=== PATIENT | female | born 1995 | race Caucasian/White ===

== ENCOUNTER → 2018-12-22 | Outpatient (CLI) | payer OTHER ==
[~2018-12-22] MED LIST: ALBU90OI; ALBU90OI INH; AZIT250 PO; CEPH500 PO; CIPRO500 MG PO; HYDACE5 PO; HYDSUL200; LOPE2C PO; METTREX2.5; MONT10T PO; NAPR375; PRED20 PO; PRENATAL; RXHYDACE PO; Zithromax250 MG PO; Zofran8 MG PO
== END | disposition home or self-care (01) ==
LOC: LAB SHORT 13:06 → LAB EV 13:06
DX: L02.91 Cutaneous abscess, unspecified (principal)
CPT/HCPCS: 87070; 87075; 87205

== ENCOUNTER 2020-09-27 02:08 | Emergency (ER) | payer OTHER ==
[~2020-09-27] VITALS: Ht 167.6 cm; Wt 106.1 kg
[2020-09-27 03:49] LABS: Source, Urine Clean Catch
[2020-09-27 03:52] LABS: Bilirubin, Urine Neg (Neg); Blood, Urine 2+ (Neg); Glucose Qualitative, Urine Neg (Neg); Ketones, Urine 1+ (Neg); Leukocyte Esterase, Urine 1+ (Neg); Nitrite, Urine Neg (Neg); Protein, Urine Neg (Neg); Urobilinogen, Urine 1+ (Normal)
[2020-09-27 03:53] LABS: Appearance, Urine Clear (Clear); Color, Urine Yellow (P-Yellow)
[2020-09-27 04:02] LABS: Bacteria Few /hpf; Squamous Epithelial Cells Many /hpf (Few); White Blood Cells, Urine 0-2 /hpf (0-5)
== END 2020-09-27 05:06 | disposition home or self-care (01) ==
LOC: ER 02:08
PROVIDERS: Emergency Medicine
DX: S30.0XXA Contusion of lower back and pelvis, initial encounter (principal); M25.551 Pain in right hip; M25.512 Pain in left shoulder; R10.32 Left lower quadrant pain; R31.9 Hematuria, unspecified; V50.5XXA Driver of pick-up truck or van injured in collision with pedestrian or animal in traffic accident, initial encounter; Y92.410 Unspecified street and highway as the place of occurrence of the external cause
CPT/HCPCS: 71046; 74177; 81001; 81025; 99284-25; A9270; Q9967

== ENCOUNTER 2021-05-26 06:03 | Day surgery (SDC) | payer OTHER ==
[~2021-05-26] VITALS: Ht 167.6 cm; Wt 109.1 kg
--- NOTE | 2021-05-26 06:47 | NUR ---
Ambulatory in Day Surgery History, Chart, Medications and Allergies reviewed before start of procedure.Patient confirms NPO status and agrees with scheduled surgery.
--- NOTE | 2021-05-26 09:45 | NUR ---
PT ABLE TO AMBULATE TO BATHROOM WITH ONLY STANDBY ASSIST. ABLE TO DRESS INDEPENDENTLY, ABLE TO VOID W/O DIFFICULTY. IV D/C'D, WNL, DRESSING APPLIED. PT STATES MINIMAL BLEEDING ON PERIPAD. D/C INSTRUCTIONS GIVEN, DENIES QUESTIONS
== END 2021-05-26 22:36 | disposition home or self-care (01) ==
LOC: ORSCMMR 06:03 → ORD 07:30 → ORSCMMR 22:36
PROVIDERS: Obstetrics & Gynecology
PROC: 10D17ZZ Extraction of Products of Conception, Retained, Via Natural or Artificial Opening (ICD-10-PCS; principal; 2021-05-26 07:30)
DX: O02.1 Missed abortion (principal); E66.01 Morbid (severe) obesity due to excess calories; Z68.38 Body mass index [BMI] 38.0-38.9, adult; Z79.899 Other long term (current) drug therapy
CPT/HCPCS: 88305; A9270; J1100; J1885; J2210; J2250; J2370; J2405; J2704; J3010; J7120

== ENCOUNTER 2021-09-07 18:26 | Observation (INO) | payer OTHER ==
[~2021-09-07] VITALS: Ht 167.6 cm; Wt 104.7 kg
[2021-09-07 20:32] LABS: BASOPHILS PERCENT AUTO 1 % (0-2); EOSINOPHILS ABSOLUTE AUTO 0.66 K/mm3 (0.00-0.68); EOSINOPHILS PERCENT AUTO 5 % (0-6); Hematocrit 43.1 % (33.0-51.0); Hemoglobin 14.6 g/dL (11.5-16.0); IMMATURE GRAN ABSOLUTE AUTO 0.05 K/mm3 (0.00-0.10); IMMATURE GRAN PERCENT AUTO 0 % (0-1); LYMPHOCYTES ABSOLUTE AUTO 5.19 K/mm3 (0.84-5.20); LYMPHOCYTES PERCENT AUTO 36 % (21-46); MONOCYTES ABSOLUTE AUTO 0.75 K/mm3 (0.16-1.47); MONOCYTES PERCENT AUTO 5 % (4-13); Mean Corpuscular HGB 30.5 pg (26.0-34.0); Mean Corpuscular HGB Conc 33.9 g/dL (31.5-36.5); Mean Corpuscular Volume 90 fL (80-100); Mean Platelet Volume 10.6 fL (9.1-12.4); NEUTROPHILS ABSOLUTE AUTO 7.88 K/mm3 (1.96-9.15); NEUTROPHILS PERCENT AUTO 54 % (41-73); Platelet Count 400 K/mm3 (150-400); RDW Coefficient Variation 12.7 % (11.7-14.2); RDW Standard Deviation 42.2 fL (35.1-46.3); Red Blood Cell Count 4.79 M/mm3 (3.80-5.20); White Blood Cell Count 14.63 K/mm3 (4.00-11.30)
[2021-09-07 21:08] LABS: Beta HCG, Quantitative, Serum 1020 mIU/mL (0-3)
[2021-09-07 21:09] LABS: Alanine Aminotransfer (ALT/SGP 32 U/L (12-78); Albumin, Blood 3.8 g/dL (3.4-5.0); Albumin/Globulin Ratio 0.9 (0.8-1.8); Alk Phos 74 U/L (50-136); Anion Gap 7 mmol/L (6-16); Aspartate Aminotrans (AST/SGOT 16 U/L (12-37); Bilirubin, Total 0.3 mg/dL (0.1-1.0); Blood Urea Nitrogen 8 mg/dL (8-24); Bun/Creatinine Ratio 11.3 (12.0-20.0); CO2, Blood 23 mmol/L (21-32); Calcium, Blood 9.1 mg/dL (8.5-10.1); Chloride, Blood 108 mmol/L (98-108); Creatinine, Blood 0.71 mg/dL (0.40-1.00); Globulin, Blood 4.2 g/dL (2.2-4.0); Glomerular Filtration Rate >60 (60-); Glucose, Blood 91 mg/dL (70-99); Sodium, Blood 138 mmol/L (136-145)
--- NOTE | 2021-09-08 01:50 | NUR ---
0115 Pt received via W/C from ED. Pt is alert and oriented. Cooperative. Pt wearing glassess. Pt c/o rt arm hurting after multiple IV stick attempts in ED. Ice pack given. Pt assessment is negative except breath sounds are diminished. No c/o pain, cramping is easing. Sm amount of vaginal flow. Pt oriented to room, given call light. Will continue to monitor.
--- NOTE | 2021-09-08 06:59 | NUR ---
Rn summary: Pt ate after coming to room. Pt not having cramps at this time. Pt rested well rest of shift. Fiance did stay all night for emotional support. Pt denies pain or any needs at this time. Lab pending. Call light in reach. Pt independant in room.
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
--- NOTE | 2021-09-08 15:37 | NUR ---
PATIENT REPORTED PAD CHANGE AT 0700, MODERATE THIN/BLEEDING NOTED ON MAXI-PAD. C/O CRAMPS IN LOWER ABD, 6/10 PAIN. PERCOCET PRN GIVEN, RESULTS EFFECTIVE. REPORTED DECREASED VAGINAL BLEEDING AND PAIN. DR. WOODRUFF CAME TO ASSESS PATIENT, DISCUSSED DISCHARGE PLAN, PATIENT WILL FOLLOW-UP AND SEE DR. WOODRUFF ON SATURDAY. 1 DOSE OF METHOTREXATE IM GIVEN. IV REMOVED. PATIENT DISCHARGED HOME 1300.
== END 2021-09-08 13:13 | disposition home or self-care (01) ==
LOC: US 18:26 → ER 18:26 → MEDS 18:27 → US 19:00 → EDSTATUS 19:00 → MEDS 09-08 01:13 → ENPENDDIS 09-08 12:08 → MEDS 09-08 13:13
PROVIDERS: Physician Assistant; ADMIT Obstetrics & Gynecology
DX: O00.90 Unspecified ectopic pregnancy without intrauterine pregnancy (principal)
CPT/HCPCS: 36415; 76801; 76817; 80053; 84702; 85025; 86900; 86901; 96372; 99285-25; A9270; G0378; J7030; J9260

== ENCOUNTER → 2021-09-07 | Outpatient (CLI) | payer OTHER | END | disposition home or self-care (01) | LOC: LAB 16:09 → LAB SHORT 16:09 | DX: N93.9 Abnormal uterine and vaginal bleeding, unspecified (principal) | CPT/HCPCS: 84702 ==

== ENCOUNTER 2021-12-24 | Emergency (ER) | payer OTHER ==
[~2021-12-24] VITALS: Ht 167.6 cm; Wt 104.3 kg
[2021-12-24] MEDS ORDERED: CEPH500 PO (08:08)
[2021-12-24] MEDS ORDERED: Clindamycin HC150 MG PO (08:08)
== END 2021-12-24 08:48 | disposition home or self-care (01) ==
LOC: ER
DX: N61.0 Mastitis without abscess (principal); J45.909 Unspecified asthma, uncomplicated; F17.210 Nicotine dependence, cigarettes, uncomplicated
CPT/HCPCS: 76642; A9270; J1885

== ENCOUNTER 2022-05-24 22:31 | Emergency (ER) | payer OTHER ==
[~2022-05-24] VITALS: Ht 167.6 cm; Wt 108.9 kg
[~2022-05-24 22:31] MED LIST changes: +Clindamycin HC150 MG PO
[2022-05-24 23:04] LABS: BASOPHILS ABSOLUTE AUTO 0.03 K/mm3 (0.00-0.23); BASOPHILS PERCENT AUTO 0 % (0-2); EOSINOPHILS ABSOLUTE AUTO 0.04 K/mm3 (0.00-0.68); EOSINOPHILS PERCENT AUTO 0 % (0-6); Hemoglobin 12.5 g/dL (11.5-16.0); IMMATURE GRAN ABSOLUTE AUTO 0.03 K/mm3 (0.00-0.10); IMMATURE GRAN PERCENT AUTO 0 % (0-1); LYMPHOCYTES ABSOLUTE AUTO 1.72 K/mm3 (0.84-5.20); LYMPHOCYTES PERCENT AUTO 18 % (21-46); MONOCYTES ABSOLUTE AUTO 0.53 K/mm3 (0.16-1.47); MONOCYTES PERCENT AUTO 5 % (4-13); Mean Corpuscular HGB 31.3 pg (26.0-34.0); Mean Corpuscular HGB Conc 34.7 g/dL (31.5-36.5); Mean Corpuscular Volume 90 fL (80-100); Mean Platelet Volume 10.9 fL (9.1-12.4); NEUTROPHILS ABSOLUTE AUTO 7.45 K/mm3 (1.96-9.15); NEUTROPHILS PERCENT AUTO 76 % (41-73); Platelet Count 276 K/mm3 (150-400); RDW Coefficient Variation 12.6 % (11.7-14.2); RDW Standard Deviation 41.8 fL (35.1-46.3); Red Blood Cell Count 3.99 M/mm3 (3.80-5.20)
[2022-05-24 23:21] LABS: Albumin, Blood 3.3 g/dL (3.4-5.0); Albumin/Globulin Ratio 0.8 (0.8-1.8); Bilirubin, Total 0.3 mg/dL (0.1-1.0); Bun/Creatinine Ratio 9.8 (12.0-20.0); Calcium, Blood 8.3 mg/dL (8.5-10.1); Creatinine, Blood 0.61 mg/dL (0.40-1.00); Globulin, Blood 4.1 g/dL (2.2-4.0); Potassium, Blood 3.8 mmol/L (3.5-5.5); Total Protein, Blood 7.4 g/dL (6.4-8.2)
[2022-05-25] MEDS ORDERED: ONDA4ODT MM (05:25)
== END 2022-05-25 05:48 | disposition home or self-care (01) ==
LOC: ER 22:31
PROVIDERS: Student in an Organized Health Care Education/Training Program
DX: Z33.2 Encounter for elective termination of pregnancy (principal); O46.91 Antepartum hemorrhage, unspecified, first trimester; J45.909 Unspecified asthma, uncomplicated; Z79.899 Other long term (current) drug therapy; F17.210 Nicotine dependence, cigarettes, uncomplicated; Z3A.10 10 weeks gestation of pregnancy
CPT/HCPCS: 36415; 80053; 85025; A9270; J1885; J2270; J2405; J7120

== ENCOUNTER 2023-12-25 02:23 | Inpatient (IN) | payer OTHER ==
[~2023-12-25] VITALS: Ht 167.6 cm; Wt 104.3 kg
[~2023-12-25 02:23] MED LIST changes: +ONDA4ODT MM
[2023-12-25] MEDS ORDERED: HYDROmorphone HCl/Pf 1MG SYR IV ONE (03:10)
[2023-12-25] MEDS ORDERED: Diphth,Pertuss(Acell),Tet Vac 0.5 ML VIAL IM ONE (03:15)
[2023-12-25 03:29] LABS: BASOPHILS ABSOLUTE AUTO 0.07 K/mm3 (0.00-0.23); BASOPHILS PERCENT AUTO 0 % (0-2); EOSINOPHILS ABSOLUTE AUTO 0.02 K/mm3 (0.00-0.68); EOSINOPHILS PERCENT AUTO 0 % (0-6); IMMATURE GRAN PERCENT AUTO 1 % (0-1); LYMPHOCYTES ABSOLUTE AUTO 2.24 K/mm3 (0.84-5.20); LYMPHOCYTES PERCENT AUTO 10 % (21-46); MONOCYTES ABSOLUTE AUTO 1.03 K/mm3 (0.16-1.47); MONOCYTES PERCENT AUTO 5 % (4-13); Mean Corpuscular HGB 30.3 pg (26.0-34.0); Mean Corpuscular HGB Conc 33.3 g/dL (31.5-36.5); Mean Corpuscular Volume 91 fL (80-100); Mean Platelet Volume 9.7 fL (9.1-12.4); NEUTROPHILS ABSOLUTE AUTO 19.18 K/mm3 (1.96-9.15); NEUTROPHILS PERCENT AUTO 84 % (41-73); Platelet Count 330 K/mm3 (150-400); RDW Coefficient Variation 15.2 % (11.7-14.2); RDW Standard Deviation 50.5 fL (35.1-46.3); Red Blood Cell Count 4.29 M/mm3 (3.80-5.20); White Blood Cell Count 22.74 K/mm3 (4.00-11.30)
[2023-12-25 03:57] LABS: Albumin, Blood 3.8 g/dL (3.4-5.0); Bilirubin, Total 0.6 mg/dL (0.1-1.0); Bun/Creatinine Ratio 16.8 (12.0-20.0); Calcium, Blood 8.5 mg/dL (8.5-10.1); Creatinine, Blood 0.54 mg/dL (0.40-1.00); Globulin, Blood 3.8 g/dL (2.2-4.0); Potassium, Blood 4.4 mmol/L (3.5-5.5); Total Protein, Blood 7.6 g/dL (6.4-8.2)
[2023-12-25] MEDS ORDERED: HYDROmorphone HCl/Pf 1MG SYR IV PRN ×2 (04:30→08:55)
[2023-12-25] MEDS ORDERED: Ondansetron HCl 2 MG / ML 2ML Vial IV PRN ×2 (04:30→08:55)
[2023-12-25] MEDS ORDERED: Acetaminophen 325 MG TABLET PO PRN ×2 (04:30→08:50)
[2023-12-25] MEDS ORDERED: Prochlorperazine Edisylate 10 mg Vial IV PRN (08:50)
[2023-12-25] MEDS ORDERED: NS 1,000 ML IV ONE ×2 (08:50→11:35)
[2023-12-25] MEDS ORDERED: Albuterol HFA200 ACT/6.7 GM INH INH PRN (08:50)
[2023-12-25] MEDS ORDERED: OxyCODONE HCL 5 MG TAB PO PRN (08:55)
[2023-12-25] MEDS ORDERED: Ketorolac Tromethamine 15mg Vial IV PRN (09:00)
[2023-12-25 09:18] VITALS: BP 133/81
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
[2023-12-25] MEDS ORDERED: Lidocaine 4% 1 Patch TOP SCH (10:00)
[2023-12-25] MEDS ORDERED: Ondansetron 4 MG SoluTab SL PRN (10:30)
[2023-12-25] MEDS ORDERED: Lactated Ringer's 1,000 ML IV ONE (11:30)
[2023-12-25] MEDS ORDERED: Lactated Ringer's 1,000 ML IV SCH (11:30)
[2023-12-25 14:19] LABS: Hematocrit 35.4 % (33.0-51.0); Hemoglobin 11.9 g/dL (11.5-16.0)
[2023-12-25 14:41] LABS: Bun/Creatinine Ratio 12.4 (12.0-20.0); Calcium, Blood 8.5 mg/dL (8.5-10.1); Creatinine, Blood 0.65 mg/dL (0.40-1.00); Potassium, Blood 3.9 mmol/L (3.5-5.5)
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
[2023-12-25 15:50] VITALS: BP 105/66
[2023-12-25 19:21] VITALS: BP 115/60
[2023-12-26] VITALS (17 sets, daily range): BP systolic 106–128; BP diastolic 51–77
[2023-12-26 06:57] LABS: BASOPHILS ABSOLUTE AUTO 0.03 K/mm3 (0.00-0.23); BASOPHILS PERCENT AUTO 0 % (0-2); EOSINOPHILS ABSOLUTE AUTO 0.14 K/mm3 (0.00-0.68); EOSINOPHILS PERCENT AUTO 2 % (0-6); Hemoglobin 11.2 g/dL (11.5-16.0); IMMATURE GRAN ABSOLUTE AUTO 0.03 K/mm3 (0.00-0.10); IMMATURE GRAN PERCENT AUTO 0 % (0-1); LYMPHOCYTES ABSOLUTE AUTO 2.33 K/mm3 (0.84-5.20); LYMPHOCYTES PERCENT AUTO 33 % (21-46); MONOCYTES ABSOLUTE AUTO 0.56 K/mm3 (0.16-1.47); MONOCYTES PERCENT AUTO 8 % (4-13); Mean Corpuscular HGB 30.2 pg (26.0-34.0); Mean Corpuscular HGB Conc 32.9 g/dL (31.5-36.5); Mean Corpuscular Volume 92 fL (80-100); Mean Platelet Volume 10.2 fL (9.1-12.4); NEUTROPHILS ABSOLUTE AUTO 4.07 K/mm3 (1.96-9.15); NEUTROPHILS PERCENT AUTO 57 % (41-73); Platelet Count 240 K/mm3 (150-400); RDW Coefficient Variation 15.4 % (11.7-14.2); RDW Standard Deviation 51.3 fL (35.1-46.3); Red Blood Cell Count 3.71 M/mm3 (3.80-5.20); White Blood Cell Count 7.16 K/mm3 (4.00-11.30)
[2023-12-26 07:01] LABS: Bun/Creatinine Ratio 10.1 (12.0-20.0); Calcium, Blood 8.2 mg/dL (8.5-10.1); Creatinine, Blood 0.6 mg/dL (0.40-1.00); Potassium, Blood 4.6 mmol/L (3.5-5.5)
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
[2023-12-26] MEDS ORDERED: Enoxaparin 40 MG/0.4 ML SYR SC SCH (09:00)
[2023-12-26] MEDS ORDERED: Cyclobenzaprine HCl 10 MG Tab PO PRN (09:20)
[2023-12-26] MEDS ORDERED: HYDROmorphone HCl/Pf 1MG SYR IV PRN (09:25)
[2023-12-26] MEDS ORDERED: Polyethylene Glycol 3350 17 gm PO PRN (09:30)
[2023-12-26] MEDS ORDERED: Naloxone HCl 0.4MG / ML 1ML Vial IV PRN (09:30)
[2023-12-26] MEDS ORDERED: Ipratropium/Albuterol SulF 2.5-0.5MG/3 ML Amp INH ONE (15:00)
[2023-12-26] MEDS ORDERED: Lactated Ringer's 1,000 ML IV SCH (15:00)
--- NOTE | 2023-12-26 15:04 | NUR ---
PT TAKEN TO DAY SURGERY AT 1446.
[2023-12-26] MEDS ORDERED: HYDROmorphone HCl/Pf 1MG SYR ONE (15:11)
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
[2023-12-26] MEDS ORDERED: CeFAZolin Sodium 2,000 MG in NS 100 ML IV SCH (15:30)
[2023-12-26] MEDS ORDERED: propofoL 20 ML IV ONE (16:02)
[2023-12-26] MEDS ORDERED: FentaNYL Citrate 50 MCG/ML 2 ML Injection ONE ×2 (16:03→18:28)
[2023-12-26] MEDS ORDERED: Bupivacaine 0.5% HCl 5 MG/ML 30MLVIAL ONE (16:07)
[2023-12-26] MEDS ORDERED: EpiNEPhrine 1 MG/1 ML 1ML Vial ONE (16:29)
[2023-12-26] MEDS ORDERED: Ondansetron HCl 2 MG / ML 2ML Vial ONE (16:40)
[2023-12-26] MEDS ORDERED: Dexamethasone Sod Phos 10 MG/ML 1ML VIAL ONE (16:40)
[2023-12-26] MEDS ORDERED: Dexmedetomidine HCL 200 MCG / 2 ML ONE (16:59)
--- NOTE | 2023-12-26 17:24 | NUR ---
12/26/23 1724 Edyta Thakur BUPIVACAINE 0.5% MIXED WITH EPI BY DR. FRANK TO CREATE A LOCAL SOLUTION OF BUPIVACAINE 0.5% WITH EPI 1:200,000. LOCAL POURED ONTO STERILE FIELD FOR USE DURING CASE.
--- NOTE | 2023-12-26 18:02 | NUR ---
SHIFT SUMMARY PT CURRENTLY IN OR. PAIN MANAGED WITH OXY, TYLENOL AND TORADOL THIS SHIFT. PT USES CALL LIGHT APPROPRIATELY. FAMILY HAS BEEN PRESENT AND SUPPORTIVE T/O THE DAY.
[2023-12-26] MEDS ORDERED: Ketorolac Tromethamine 30mg Vial ONE (18:38)
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
[2023-12-26] MEDS ORDERED: Petrolatum/Mineral Oil/Lanolin 1 APPLIC/50 GM Tube TOP SCH (21:00)
[2023-12-26] MEDS ORDERED: Docusate Sodium 100 MG Cap PO SCH (21:00)
--- NOTE | 2023-12-26 21:55 | NUR ---
ASSUMPTION OF CARE NOTE. REPORT RECEIVED FROM MADELEINE FINN. THIS RN HAS NOW ASSUMED CARE OF PT. PT RESTING WITH EYES CLOSED, SIGNIFICANT OTHER AT BEDSIDE, AND CALL LIGHT IN REACH. DRESSING C/DI AND BIOX IN PLACE AND ON O2 VIA N/C.
[2023-12-27 02:44] VITALS: BP 110/60
[2023-12-27 05:22] LABS: Hematocrit 34.6 % (33.0-51.0); Hemoglobin 11.5 g/dL (11.5-16.0)
[2023-12-27 05:57] LABS: Bun/Creatinine Ratio 17.4 (12.0-20.0); Calcium, Blood 8.6 mg/dL (8.5-10.1); Creatinine, Blood 0.58 mg/dL (0.40-1.00); Potassium, Blood 4.4 mmol/L (3.5-5.5)
[2023-12-27 07:28] VITALS: BP 113/58
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
[2023-12-27] MEDS ORDERED: Albuterol 2.5 MG/3 ML VIAL INH PRN (08:50)
[2023-12-27 14:50] VITALS: BP 107/58
--- NOTE | 2023-12-27 16:31 | NUR ---
SHIFT SUMMARY POD1 ORIF L ELBOW, NWB, BRACE ON, ELEVATED ON PILLOWS. A&OX4, VSS/RA, ИРИНА PO, CORTES PATENT & DRAINING YELLOW URINE/STAT LOCK ON/OFF FLOOR, WORKED WITH PT TODAY AND SAT ON SIDE-OF-BED/STOOD BRIEFLY WITH HEMIWALKER - TTWB LLE, PAIN MANAGED WITH DIL 0.5mg X2, OXY 10mg, TYLENOL, FLEXERIL, TORADOL, LIDOCAINE PATCH LSHOULDER. WILL REPORT TO ONCOMING NOC RN.
[2023-12-27] MEDS ORDERED: Albuterol 2.5 MG/3 ML VIAL INH SCH (19:25)
[2023-12-27 19:29] VITALS: BP 110/51
[2023-12-28 04:01] VITALS: BP 126/77
--- NOTE | 2023-12-28 04:09 | NUR ---
SHIFT SUMMARY POD2 ORIF ON L ELBOW. DRESSING APPEARS C/D/I, SWELLING NOTEABLE THIS AM. ICE PACK PLACED AND EXTREMITY ELEVATED. SENSATION AND CIRCULATION REMAIN INTACT. VSS. PT SLEPT WELL T/O THE NIGHT. WOKE UP VERY PAINFUL THIS AM, MEDICATED PER EMAR. AWAITING REASSESSMENT. CORTES REMAINS IN PLACE, GOOD URINE OUTPUT. PT TOLLERATING PO INTAKE W/O N/V. DID NOT GET OOB THIS EVENING. OVERALL NO ACUTE EVENTS NOTED. PLAN TO CONTINUE TO WORK ON PAIN CONTROL AND PT/OT UNTIL MEDICALLY CLEARED FOR D/C.
[2023-12-28 07:45] VITALS: BP 116/78
[2023-12-28 15:46] VITALS: BP 119/61
--- NOTE | 2023-12-28 17:03 | NUR ---
shift summary POD 2 I&D L ELBOW. PT REMAINS PAINFUL DURING SHIFT, BUT ABLE TO STAND AND TRANSFER TO CHAIR MULTIPLE TIMES DURING SHIFT. CORTES REMOVED, ENCOURAGING FLUIDS AND AWAITING FIRST POST REMOVAL VOID. TOLERATING DIET WELL. L ARM REMAINS IN SLING AND IMMOBILZER. ABLE TO WIGGLE FINGERS, FULL SENSATION TO HAND AND ARM. INCENTIVE SPIROMETER BEING USED DURING SHIFT. SPOUSE AT BEDSIDE VERY HELPFUL WITH CARE. PLAN IS TO DISCHARGE HOME ONCE EQUIPMENT IS AVAILABLE.
[2023-12-28 20:50] VITALS: BP 114/58
[2023-12-29 03:13] VITALS: BP 120/65
--- NOTE | 2023-12-29 04:28 | NUR ---
SHIFT SUMMARY PT TRANSFERED 1 ASST TO BSC THROUGHOUT NIGHT, VOIDED MULTIPLE TIMES. PAIN MANAGED W/ IV PAIN MEDS PER EMAR. DRESSING AND SPLINT IN PLACE ON L ARM C/D/I. MEDIPORE DRESSING C/D/I. VSS. PT ABLE TO REST MOST OF NIGHT. SPOUSE IN ROOM. USING CALL LIGHT APPROPRIATELY.
[2023-12-29 07:54] VITALS: BP 126/66
[2023-12-29 14:50] VITALS: BP 107/56
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
[2023-12-29 19:54] VITALS: BP 131/82
[2023-12-30 03:08] VITALS: BP 122/70
--- NOTE | 2023-12-30 04:35 | NUR ---
SHIFT SUMMARY PATIENT WAS UP TO BSC FOR VOIDS TWICE. MEDICATED FOR PAIN AND SPASMS THRUOUT NIGHT. HER SO STAYED THE NIGHT.
[2023-12-30 07:48] VITALS: BP 121/76
[2023-12-30] MEDS ORDERED: Cyclobenzaprine5 MG PO (12:33)
[2023-12-30] MEDS ORDERED: DOCU100 PO (12:34)
[2023-12-30] MEDS ORDERED: ASPERFLEX1 EACH TOP (12:37)
[2023-12-30] MEDS ORDERED: Percocet 5-3251 EACH PO (12:37)
[2023-12-30] MEDS ORDERED: ENOX40I SC (14:18)
--- NOTE | 2023-12-30 14:41 | NUR ---
DRESSING CHANGE BRACE REMOVED FROM LEFT ARM, DRESSING REMOVED. INCISION CLEAN & WELL APPROXIMATED. CLEANSED WITH ALCOHOL, XEROFORM, GAUZE, PADDING & ERICA WRAP REAPPLIED. BRACE REPLACED. GOOD CSM TO FINGERS. PATIENT TOLERATED WELL.
[2023-12-30 14:44] VITALS: BP 125/76
--- NOTE | 2023-12-30 15:20 | NUR ---
DISCHARGE PT PROVIDED WITH WRITTEN AND VERBAL DISCHARGE INSTRUCTIONS, SHE AND HER FAMILY REPORTED UNDERSTANDING. PT PROVIDED WITH CLEAN DRESSING SUPPLIES. [employer] PRESCRIPTION FROM DR. TAN CALLED TO [facility], SPOKE WITH PHARMACIST SANDEEP. PT OBTAINED DARBY WALKER AND W/C PRIOR TO DISCHARGE. L ARM DRESSING CHANGE COMPLETED BY DAVINA FINN PRIOR TO DISCHARGE. CATALINA POWER GLIDE REMOVED BY DAVINA FINN PRIOR TO DISCHARGE. PT ASSISTED OUT IN W/C AT APPROXIMATELY 1520.
== END 2023-12-30 15:16 | disposition home health service (06) | DRG 958 ==
LOC: ER 02:23 → ERHOLD 02:24 → ER 02:24 → SURS 02:24 → ERHOLD 02:24 → SURS 08:48
PROVIDERS: Emergency Medicine; Orthopaedic Surgery Sports Medicine; Student in an Organized Health Care Education/Training Program; ADMIT Surgery
PROC: 0LQ40ZZ Repair Left Upper Arm Tendon, Open Approach (ICD-10-PCS; principal; 2023-12-26 15:00)
DX: S46.392A Other injury of muscle, fascia and tendon of triceps, left arm, initial encounter (principal); E87.1 Hypo-osmolality and hyponatremia; S32.592A Other specified fracture of left pubis, initial encounter for closed fracture; S27.0XXA Traumatic pneumothorax, initial encounter; S22.32XA Fracture of one rib, left side, initial encounter for closed fracture; S52.122A Displaced fracture of head of left radius, initial encounter for closed fracture; V89.2XXA Person injured in unspecified motor-vehicle accident, traffic, initial encounter; F17.210 Nicotine dependence, cigarettes, uncomplicated; J45.909 Unspecified asthma, uncomplicated; F10.129 Alcohol abuse with intoxication, unspecified; E66.9 Obesity, unspecified; M06.9 Rheumatoid arthritis, unspecified; Z98.890 Other specified postprocedural states; F12.90 Cannabis use, unspecified, uncomplicated; Z79.51 Long term (current) use of inhaled steroids; Z71.6 Tobacco abuse counseling; Y90.0 Blood alcohol level of less than 20 mg/100 ml; Z68.37 Body mass index [BMI] 37.0-37.9, adult
CPT/HCPCS: 29105; 51702; 70450; 71045; 71260; 72125; 73070; 73110; 73200; 73502; 74177; 80048; 80053; 83735; 84703; 85014; 85018; 85025; 86850; 86900; 86901; 90715; 94640; 94664; 94760; 94762; 96374-59; 96375-59; 96376-59; 97110; 97162; 97167; 97530; 97535; 99285-25; A9270; C1713; G0378; J0171; J0690; J0780; J1100; J1170; J1650; J1885; J2405; J2704; J3010; J7030; J7120; Q9967

== ENCOUNTER → 2024-12-02 | Outpatient (CLI) | payer OTHER ==
[~2024-12-02] MED LIST changes: +ASPERFLEX1 EACH TOP; +Cyclobenzaprine5 MG PO; +DOCU100 PO; +ENOX40I SC; +Percocet 5-3251 EACH PO
[2024-12-04 01:55] LABS: APTIMA MEDIA TYPE Urine; C. TRACHOMATIS BY TMA Negative (Negative); N. GONORRHOEAE BY TMA Negative (Negative); SPECIMEN SOURCE Urine
== END ==
LOC: LAB SHORT 12:25 → LAB 12:25
PROVIDERS: Obstetrics & Gynecology
DX: Z34.81 Encounter for supervision of other normal pregnancy, first trimester (principal)
CPT/HCPCS: 87491; 87591